=== PATIENT | female | born 1960 | race Caucasian/White ===

== ENCOUNTER → 2016-08-12 | Outpatient (CLI) | payer BC | LOC: SLEEP 21:30 | DX: G47.30 Sleep apnea, unspecified (principal) | CPT/HCPCS: 95810 ==

== ENCOUNTER → 2020-05-17 | Outpatient (CLI) | payer OTHER ==
[~2020-05-17] MED LIST: BIOTIN800 MCG PO; BUMETANIDE2 MG PO; DIGOXIN250 MCG PO; DIOVAN80 MG PO; FISH OIL 1,0001 EAC1 PO; LIPITOR TAB 1010 MG PO; NEURONTIN 100100 MG PO; NORCO 5-325 TA1 EACH PO; NOVOLIN 70100 UNIT/1 SQ; TOPROL XL200 MG PO; XARELTO20 MG PO
== END ==
LOC: HEART 5 10:38
DX: R06.02 Shortness of breath (principal); R91.8 Other nonspecific abnormal finding of lung field
CPT/HCPCS: 36600; 71046; 82803; 94010; 94729

== ENCOUNTER → 2020-06-05 | Outpatient (CLI) | payer OTHER | LOC: KOH-I 05-30 13:30 | DX: J98.4 Other disorders of lung (principal); R91.1 Solitary pulmonary nodule | CPT/HCPCS: 71250 ==